=== PATIENT | male | born 1950 | race Caucasian/White ===

== ENCOUNTER 2025-05-09 11:41 | Emergency (ER) | payer MEDICARE, OTHER, SELFPAY ==
--- NOTE | 2025-05-09 11:46 | XRR_ITS ---
PROCEDURE INFORMATION: Exam: XR Right Hand Exam date and time: 05/09/2025 11:47 AM Age: 74 years old Clinical indication: Injury or trauma; Fall; Blunt trauma (contusions or hematomas); Hand; Right TECHNIQUE: Imaging protocol: Radiologic exam of the right hand. Views: 3 or more views. Total images: 306 COMPARISON: No relevant prior studies available. FINDINGS: Bones/joints: Right middle (3rd) finger distal interphalangeal joint dislocation characterized by posterior displacement of the distal (P3) phalanx with respect to middle (P2) phalanx. Right 3rd distal (P3 phalanx) dorsal articular margin osteophyte demonstrates a subtle transverse hairline and may be fractured without displacement. First (1st) carpometacarpal (CMC) and triscaphe (scaphotrapeziumtrapezoid) joint degenerative osteoarthritis. Mild degenerative arthritis between the lunate and triquetrum carpals. Generalized minor right metacarpophalangeal joint osteoarthritis. A solitary small 2.3 mm diameter well corticated calcification-ossification lies just volar of the distal radial metaphysis, unlikely to represent an acute fracture. Right distal interphalangeal joint and proximal interphalangeal joint mild degenerative arthritis. Soft tissues: Normal. No manifestations of laceration, subcutaneous emphysema or unexpected retained soft tissue radiopaque foreign body. XR/XR hand RT min 3V* [id number] IMPRESSION: 1. Right middle (3rd) finger distal interphalangeal joint dislocation characterized by posterior displacement of the distal (P3) phalanx with respect to middle (P2) phalanx. 2. Right 3rd distal (P3 ) phalanx dorsal articular margin osteophyte with subtle transverse hairline; nondisplaced osteophyte fracture without displacement cannot be excluded. 3. Generalized degenerative osteoarthritis.
[2025-05-09 11:50] VITALS: BP 205/80; PULSE 81; RESP 17; TEMP 36.6; O2SAT 97; BMI 29.0
--- OUTSIDE RECORDS SUMMARY | 2025-05-09 11:50 | XMS_ITS | Clinical Summary ---
Author Organization [facility] er Address [address] [facility] [place] [address] Care Team Providers [employer] Speech Therapist Name Role Phone Nicolas Basurto MD Primary Care Provider [phone] Allergies Active Allergy Reactions Criticality Noted Date Comments [place] And Derivatives Anaphylaxis High 09/02/2019 Latex Rash Low 08/16/2023 Penicillins Hives High 05/06/2019 Prochlorperazine Edisylate Other (See Comments) High 05/06/2019 Draws him up, contracture like symptoms Ragweed Cough Low 02/09/2017 Unclassified Drug Hives High 08/16/2023 Dog fur Medications EPINEPHrine (EPIPEN) 0.3 mg/0.3 mL Auto-Injector INJECT 1 PEN IN THE MUSCLE SINGLE DOSE NEEDED DIRECTED 0 Active doxepin (SINEquan) 10 mg capsule Take 30 mg by mouth daily at bedtime. 0 Active vit C/E/Zn/coppr/lutei n/zeaxan (PRESERVISION AREDS-2 ORAL) Take 1 Tablet by mouth 2 times daily. 1 Active glucosamine-chondr oitin (ARTHX DS) 500-400 mg Capsule Take 1 Capsule by mouth 2 times daily. Active fexofenadine (SHIV) 180 mg tablet Take 180 mg by mouth daily. Active calcium as carbonate 1,625 mg (650 mg elemental) tablet Take 1 Tablet by mouth 2 times daily. Active ascorbic acid, vitamin C, (VITAMIN C) 1,000 mg Tablet Take 1,000 mg by mouth daily. Active dupilumab (Dupixent Pen) 300 mg/2 mL Pen Injector every 2 weeks. 1 Active Cinnamon Bark (Cinnamon) 500 mg Capsule Take by mouth daily. Active docusate sodium (Colace) 100 mg capsule Take 1 Capsule (100 mg) by mouth 2 times daily. 60 Capsule 09/07/2023 11:33 AM CDT 4 Active atorvastatin (LIPITOR) 40 mg tabletIndications: Hyperlipidemia, unspecified hyperlipidemia type TAKE 1 TABLET DAILY AT BEDTIME 90 Tablet 3 5 Active lisinopriL (PRINIVIL) 10 mg tabletIndications: Essential hypertension TAKE 1 TABLET DAILY 90 Tablet 3 5 Active montelukast (SINGULAIR) 10 mg tablet TAKE 1 TABLET DAILY 90 Tablet 3 5 Active metFORMIN (GLUCOPHAGE) 500 mg tabletIndications: Type 2 diabetes mellitus with hyperglycemia, without long-term current use of insulin (CMS/[facility]) TAKE 1 TABLET TWICE A DAY WITH MEALS 180 Tablet 3 5 Active glucos sul [id number]-C-M n (Glucosamine Chondroitin) 550-30-1 mg Capsule Take 1 Capsule by mouth every 12 hours. 4 Active omeprazole (PriLOSEC) 40 mg Capsule, Delayed Release(E.C.) TAKE 1 CAPSULE DAILY 90 Capsule 3 5 Active fluticasone propionate (FLONASE) 50 mcg/spray [place], Suspension nasal inhalerIndications :Seasonal allergic rhinitis due to pollen Administer 2 Sprays in each nostril daily. 16 Gram 5 Active OTHER OTC Flonase Active Lumigan 0.01 % solution INSTILL 1 DROP INTO EACH EYE ONCE DAILY IN THE EVENING 5 Active gabapentin (NEURONTIN) 600 mg tablet TAKE 1 TABLET THREE TIMES A DAY 270 Tablet 3 5 Active tamsulosin (FLOMAX) 0.4 mg capsule TAKE 1 CAPSULE DAILY 90 Capsule 3 5 Active empagliflozin (Jardiance) 10 mg tabletIndications: Type 2 diabetes mellitus without complication, without long-term current use of insulin (CMS/HCC),HFrEF (heart failure with reduced ejection fraction) ([facility]/HCC) Take 1 Tablet (10 mg) by mouth daily in the morning. 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 09/05/2023 Allergic rhinitis 08/16/2023 Anemia 08/16/2023 S/P insertion of spinal cord stimulator 08/16/19 Chronic bilateral low back pain without sciatica 04/19/2023 Hyperlipidemia DM (diabetes mellitus), type 2 Essential hypertension History of colonic polyps Resolved Problems Problem Noted Date Diagnosed Date Resolved Date Preoperative general physical examination 08/16/2023 08/23/2023 Status post left knee replacement - 09/06/2023 12/25/2023 Constipation 08/16/2023 08/23/2023 Nephrolithiasis 12/20/2022 04/19/2023 Elevated liver enzymes 09/02/201904/19 Leukocytosis (leucocytosis) 09/01/2019 09/20/2019 Spasticity 09/01/2019 08/23/2023 Acute deep vein thrombosis ( DVT) of left peroneal vein 09/01/2019 03/08/2022 Incomplete paraplegia 08/30/20192021 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 08/28/2019 07/12/2022 Urinary retention 08/26/2019 09/20/2019 Acute cystitis without hematuria 08/26/2019 09/01/2019 Constipation, unspecified 08/26/2019 Sepsis 08/26/2019 09/20/2019 Generalized weakness 08/26/2019 024 Asthma 08/23/2023 Overview (04/27/2021): Reactive airway disease-no treatment in 10 years Encounters Date Type Department Care Team Description 04/21/2025 External Device Data ST[facility] ABSTRACTION Provider, Abstract 04/14/2025 11:16 AM HOT TOP LINER - 04/14/2025 11:59 PM HOT TOP LINER Hospital Encounter [facility] [address] [place] [id number] Nicolas Basurto MD Discharge Disposition: Home or Self Care 04/08/2025 8:30 AM HOT TOP LINER Office Visit [facility] [place] [facility] [address] [address] [address] [place] [phone] Nicolas Basurto MD Mixed hyperlipidemia (Primary Dx); Type 2 diabetes mellitus without complication, without long-term current use of insulin (CMS/HCC) 04/07/2025 Results Follow-Up [place] [address] [address] [address] [address] [place] [phone] Nicolas Basurto MD CBC WITH DIFFERENTIAL, COMPREHENSIVE METABOLIC PANEL, HEMOGLOBIN A1C, Additional followed-up results: 2 03/20/2025 Orders Only [place] [address] [address] [address] [address] [place] [phone] Nicolas Basurto MD Injury of right foot, sequela (Primary Dx); Right foot pain 03/17/2025 9:00 AM CDT Office Visit [facility] [address] [place] [address] Vidal Pate PA-C Lumbar spondylosis (Primary Dx); Lumbar radiculitis; Degeneration of intervertebral disc of lumbar region with discogenic back pain; Failed back surgical syndrome; Post laminectomy syndrome 03/10/2025 External Device Data STL ABSTRACTION Provider, Abstract 03/04/2025 12:30 PM CDT Office Visit [place] [address] [address] [address] [address] [place] [phone] Nicolas Basurto MD Type 2 diabetes mellitus without complication, without long-term current use of insulin (CMS/HCC) (Primary Dx); Right foot pain; HFrEF (heart failure with reduced ejection fraction) (CMS/HCC); Need for vaccination; Hyperlipidemia, unspecified hyperlipidemia type; Essential hypertension; Essential (primary) hypertension 03/04/2025 Results Follow-Up [facility] [address] [address] [address] [place] [phone] Nicolas Basurto MD ECHO COMPLETE - CONTRAST AND STRAIN IF INDICATED 03/03/2025 12:41 PM CDT - 03/03/2025 11:59 PM CDT [facility] [address] [facility] [place] [address] Nicolas Basurto MD Discharge Disposition: Home or Self Care 02/26/2025 Results Follow-Up [facility] [address] [place] [address] Emily Mckeon DNP C-REACTIVE PROTEIN 02/25/2025 11:00 AM CDT Office Visit [facility] [address] [place] [address] Emily Mckeon DNP 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 (Primary Dx) 02/19/2025 9:37 AM CDT - 02/19/2025 11:59 PM CDT Hospital Encounter [facility] [address] [address] [address] [facility] [address] [place] [phone] Nicolas Basurto MD Discharge Disposition: Home or Self Care 02/19/2025 Results Follow-Up [facility] [address] [address] [address] [place] [phone] FOOT WO CONTRAST RIGHT 02/17/2025 External Device Data STL ABSTRACTION Provider, Abstract 02/13/2025 7:30 AM CDT Office Visit [place] [address] [address] [address] [address] [place] [phone] Nicolas Basurto MD Right foot pain (Primary Dx); Injury of left rotator cuff, subsequent encounter; Metatarsalgia of right foot; Left elbow pain; Rupture of left biceps tendon, initial encounter 02/12/2025 Refill [facility] [address] [place] [phone] Leana Arias PA from Last 3 Months Immunizations Immunization Administration Dates Next Due (ADACEL/BOOSTRIX)(10 YR UP) TDAP VACCINE, 0.5ML, IM 04/10/2012 (Moderna Bivalent)(6 Mos Up) COVID-19 Vaccine - Emergency Use Authorization, MRNA(Pf) 50 Mcg/0.5 Ml Im Susp 05/11/2022 (PNEUMOVAX 23)(50 YRS UP) PN EUMOCOCCAL POLYSACCHARIDE (PPV23) 0.5 ML, IM 07/25/2019,10/11/2011 (PREVNAR 13)(6 WKS UP) PNEUM OCOCCAL CONJUGATE (PCV13) 0.5 ML, IM 02/14/2021,04/11/2018 (SPIKEVAX) (12 YRS UP PRIMAR Y SERIES) COVID-19 VACCINE - MRNA-1273(PF) 100 MCG/0.5 ML IM SUSP 07/05/2020 (TDVAX)(7 YRS UP) TETANUS AN D DIPHTHERIA TOXOIDS, ADSORBED (2 LF OF TETANUS TOXOID AND 2 LF OF DIPHTHERIA TOXOID), 0.5ML (PF), IM 02/25/2021 (TENIVAC)(7 YRS UP) TETANUS AND DIPHTHERIA TOXOIDS, ADSORBED (5 LF OF TETANUS TOXOID AND 2 LF OF DIPHTHERIA TOXOID), 0.5ML (PF), IM 02/25/2021 INFLUENZA VACCINE HIGH DOSE QUADRIVALENT 65 YR UP PF IM 02/20/2024,02/20/2024,03/12/2023,03/26,03/11/2021,02/20/2020,04/15/2019 INFLUENZA VACCINE HIGH DOSE TRIVALENT SPLIT VIRUS, (65 YR UP), 0.5ML (PF), IM 03/04/2025,02/20/2024 Influenza A (H1N1) Vaccine IM 03/23/2022 Influenza Seasonal Unspecifi ed Formulation IM 04/11/2018 Influenza Vaccine High Dose 65+ Yrs IM 9 Influenza Vaccine Tri Adjuva nted 65+ PF IM 04/15/2019 Influenza, Unspecified Formulation 04/11/2018 Family History Medical History Relation Name Comments High Cholesterol Brother Kandi 1 Heart Disease Father Rachael leaky valve Respiratory Disease Father Rachael Diabetes Maternal Grandfather High Cholesterol Mother Lianne Hypertension Mother Lianne Diabetes Paternal Grandfather Kandi Guerrero No Known Problems Sister Diabetes Son 1 No Known Problems Son 2 Relation Name Status Comments Brother Kandi Alive Father Rachael Maternal Grandfather Mother Lianne Paternal Grandfather Kandi Guerrero Alive Sister Son 1 Alive Son 2 Alive Social History Tobacco Use Types Packs/Day Years Used Date Smoking Tobacco: Never Passive Smoke Exposure: Never Smokeless Tobacco: Never Tobacco Cessation:Counseling Given: Not Answered Alcohol Use Standard Drinks/Week Comments Never 0 (1 standard drink = 0.6 oz pur e alcohol) Financial Resource Strain Answer Date R ecorded How hard is it for you to pa y for the very basics like food, housing, medical care, and heating? Not hard at all 03/08/2022 Food Insecurity Answer Date Recorded In the past 12 months, have you worried that your food would run out before you had money to buy more? Never true 03/08/2022 In the past 12 months, did y ou run out of food and didn't have money to buy more? Never true 03/08/2022 Transportation Needs Answer Date Record ed In the past 12 months, has l ack of transportation kept you from medical appointments or from getting medications? No 03/08/2022 Lack of Transportation (Non-Medical) Not on file 03/08/2022 Feeling Safe Answer Date Recorded Are you in a relationship wi th someone who hurts you emotionally and/or physically? No 02/03/2025 Food Insecurity Answer Date Recorded Social/Environmental Concerns No concerns Transportation Needs Answer Date Record ed Social/Environmental Concerns No concerns Housing Stability Answer Date Recorded Social/Environmental Concerns No concerns Utility Needs Answer Date Recorded Social/Environmental Concerns No concerns Sex and Gender Information Value Date Recorded Sex Assigned at Not on file Legal Sex Male 11:13 PM HOT TOP LINER Gender Identity Not on file Sexual Orientation Not on file Last Filed Vital Signs Vital Sign Reading Time Taken Comments Blood Pressure 120/74 04/08/2025 8:58 AM HOT TOP LINER Pulse 82 04/08/2025 8:58 AM HOT TOP LINER Temperature 36.4 C (97.6 F) 04/08/2025 8:58 AM HOT TOP LINER Respiratory Rate 18 04/08/2025 8:58 AM HOT TOP LINER Oxygen Saturation 98% 04/08/2025 8:58 AM HOT TOP LINER Inhaled Oxygen Concentration - - Weight 81.6 kg (179 lb 12.8 oz) 04/08/2025 8:58 AM HOT TOP LINER Height 165.1 cm (5' 5 ) 04/08/2025 8:58 AM HOT TOP LINER Body Mass Index 29.92 04/08/2025 8:58 AM HOT TOP LINER Plan of Treatment Upcoming Encounters Date Type Department Care Team (Late st Contact Info) Description 05/20/2025 7:20 AM HOT TOP LINER Office Visit [facility] [address] [place] [address] Vidal Pate PA-C [address] [place] [phone] 10/15/2025 7:30 AM CDT Office Visit [facility] [address] [address] [address] [place] [address] Nicolas Basurto MD [address] [place] [address] [address] [place] [address] Health Maintenance Due Date Last Done Comments FIT-DNA Q 3 years 1994 FIT/FOBT Q 1 year 1994 Flex Sig/CT Colonography Q 5 years 1994 ZOSTER VACCINE (1 of 2) 1999 RSV VACCINE (60+ or ) (1 - 1-dose 75+ series) 2024 Traditional Medicare (ACO) A nnual Wellness Visit 08/23/2024 08/23/2023, 03/08/2022, 02/25/2021 COVID-19 Vaccine (6 - 2024-2 6 season) 2025 05/11/2022, 10/18/2021, 05/09/2021, Additional history exists COLORECTAL SCREENING 04/15/2025 04/15/2020, 04/15/2020, 04/05/2020, Additional history exists Colorectal Cancer Screening 04/15/2025 DIABETES ANNUAL FOOT EXAM 05/07/20252023, 11/09/2022, 11/02/2021, Additional history exists DIABETES HBA1C Q 6 MONTHS 10/04/20252024, 11/24/2024, 05/07/2024, Additional history exists DIABETES MICROALBUMIN ANNUAL SCREEN 11/24/2025 11/24/2024, 08/23/2023, 07/12/2022, Additional history exists DIABETES ANNUAL RETINAL EXAM 12/01/2025, 03/05/2024, 08/06/2023, Additional history exists DIABETES: A1C (Auto Order) 04/06/202604/06, 11/24/2024, 05/07/2024, Additional history exists LDL CHOLESTEROL ANNUAL 04/06/2026 , 11/24/2024, 08/23/2023, Additional history exists DTAP/TDAP/TD VACCINES (4 - T d or Tdap) 02/25/2031 02/25/2021, 02/25/2021, 04/10/2012 PNEUMOCOCCAL VACCINE 50+ YEARS Completed 0 02/14/2021, 07/25/2019, 04/11/2018, Additional history exists INFLUENZA VACCINE Completed 03/04/2025, , 02/20/2024, Additional history exists Medical Devices Implanted Type Area Electrician Substation Device Identifier Shelf Expiration Date Model / Serial / Lot Clip Crtg Med/Lrg 1112 - [id number] Implanted:Qty : 1 on 01/31/2023 by Alex Frost MD at [facility] Clip N/A: Abdomen [employer] [id number] 11/30/2027 1112 / / [id number] Hemostatic Surgiflo 8ml W/Thrombin 2994 - [id number] Implanted:Qty : 1 on 08/27/2019 by Davon Rico MD Hemostatic N/A: Spine Thoracic [employer] [id number] 02/01/2021 2994 / / [id number] [place] Senza Lead N300 [id number] - [id number] Implanted:Qty : 1 on 10/22/2020 by Roque Nichole MD Lead Left: Back NEVRO ESTELA 03/04/2023 [id number] / / [id number] Lead Senza Perc Catalino 5mm 50cm Kt [id number] - [id number] Implanted:Qty : 1 on 10/22/2020 by Roque Nichole MD Lead Left: Back NEVRO ESTELA [id number] [id number] / / [id number] Lead Senza Perc Catalino 5mm 50cm Kt [id number] - [id number] Implanted:Qty : 1 on 10/22/2020 by Roque Nichole MD Lead Left: Back NEVRO ESTELA [id number] [id number] / / [id number] Senza Omnia Scs Generator Implanted:Qty : 1 on 10/22/2020 by Roque Nichole MD Left: Back 04/04/2023 NEVRO - [id number] / / [id number] Bsplt Tib Attune Fix Brng Sz 6 Implanted:Qty : 1 on 09/06/2023 by Jasper Quinonez MD at [facility] Left: Knee [id number] 08/01/2033 [id number] / / [id number] Comp Fem Attune Lt Sz6 Nrw Implanted:Qty : 1 on 09/06/2023 by Jasper Quinonez MD at [facility] Left: Knee [id number] 12/01/2032 [id number] / / [id number] Tibial Insert 6 Left 5mm Implanted:Qty : 1 on 09/06/2023 by Jasper Quinonez MD at [facility] Left: Knee 05/03/2031 [id number] / / [id number] Explanted Type Area Electrician Substation Device Identifier Shelf Expiration Date Model / Serial / Lot Stent Contour [id number] - [id number] Implanted:Qty: 1 on 12/20/2022 by Wilian Smiley MD at [facility] Explanted:Qty: 1 on 12/28/2022 by Gladys Parish MD at [facility] Stent Right: Ureter [employer]/PNEUMATIC TUBE FITTER [id number] 08/21/2025 [id number] Procedures Procedure Name Priority Date/Time Associated Diagnosis Comments MRI FOOT WO CONTRAST RIGHT Routine 04/14/2025 11:56 AM HOT TOP LINER Injury of right foot, sequela Right foot pain BRAIN NATRIURETIC PEPTIDE, BNP OR PROBNP Routine 04/06/2025 9:17 AM HOT TOP LINER HFrEF (heart failure with reduced ejection fraction) ([facility]/HCC) Essential (primary) hypertension LIPID PANEL Routine 04/06/2025 9:17 AM HOT TOP LINER HFrEF (heart failure with reduced ejection fraction) (CMS/HCC) Hyperlipidemia, unspecified hyperlipidemia type Essential hypertension HEMOGLOBIN A1C Routine 04/06/2025 9:17 AM HOT TOP LINER Type 2 diabetes mellitus without complication, without long-term current use of insulin ([facility]/HCC) COMPREHENSIVE METABOLIC PANEL Routine 04/06/2025 9:17 AM HOT TOP LINER Type 2 diabetes mellitus without complication, without long-term current use of insulin ([facility]/HCC) HFrEF (heart failure with reduced ejection fraction) (CMS/HCC) Hyperlipidemia, unspecified hyperlipidemia type Essential hypertension CBC WITH DIFFERENTIAL Routine 04/06/2025 9:17 AM HOT TOP LINER Type 2 diabetes mellitus without complication, without long-term current use of insulin ([facility]) Right foot pain HFrEF (heart failure with reduced ejection fraction) (CMS/HCC) Need for vaccination Hyperlipidemia, unspecified hyperlipidemia type Essential hypertension ECHO COMPLETE Routine 03/03/2025 2:07 PM CDT Systolic murmur C-REACTIVE PROTEIN Routine 02/25/2025 11 :20 AM CDT 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 CT FOOT WO CONTRAST RIGHT Routine 02/19/2025 10:12 AM CDT Right foot pain Metatarsalgia of right foot MICROALBUMIN/CREATINI NE RATIO, RANDOM UR Routine 11/24/2024 9:18 AM CDT Type 2 diabetes mellitus without complication, without long-term current use of insulin ([facility]) HM DIABETES EYE EXAM Routine 07/06/2023 4:11 PM HOT TOP LINER ENDOSCOPY, COLON, SCREENING 04/15/2020 12:00 AM HOT TOP LINER from Last 3 Months or Most Recently Relevant to Health Maintenance Results * MRI FOOT WO CONTRAST RIGHT (04/14/2025 11:56 AM HOT TOP LINER) Anatomical Region Laterality Modality Ankle / Foot Magnetic Resonan ce 04/14/2025 11:5 6 AM HOT TOP LINER Impressions 04/14/2025 12:26 PM HOT TOP LINER IMPRESSION: Please see below. Exam: MRI FOOT WO CONTRAST RIGHT Date/Time of Exam: 04/14/2025 11:56 AM Reason For Exam: Foot trauma, tendon injury or dislocation suspected, xray equivocal (Age >= 6y), Foot pain, stress fracture suspected, neg xray. Diagnosis: Injury of right foot, sequela; Right foot pain. Technique: MRI of the right foot was performed without the administration of intravenous contrast. Comparison: Radiographs from 02/06/[address] from 02/11/2025. Findings: There is metallic susceptibility artifact associated with total ankle arthroplasty hardware. There is metallic susceptibility artifact associated with several soft tissue foreign bodies not readily apparent on prior exams. There is no evidence of an acute fracture or abnormal stress response. The joints are anatomically aligned. There are mild scattered degenerative changes affecting the first metatarsophalangeal and mid foot joints. There is a physiologic amount of joint fluid. The Lisfranc ligamentous complex appears intact. The capsuloligamentous complex of the first metatarsophalangeal joint and the plantar plates of the lesser digits appear intact. The tendons appear intact and within normal limits. There is no significant tenosynovitis. There is a mild degree of nonspecific subcutaneous soft tissue edema. There is no evidence of a discrete fluid collection. There is no significant bursal distention. There is no evidence of a discrete soft tissue mass. There is a mild degree of nonspecific muscle edema. IMPRESSION: 1. No acute osseous abnormality. 2. Mild degenerative changes. Narrative Procedure Note Gato Goss, - 04/14/2025 IMPRESSION: Please see below. Exam: MRI FOOT WO CONTRAST RIGHT Date/Time of Exam: 04/14/2025 11:56 AM Reason For Exam: Foot trauma, tendon injury or dislocation suspected, xray equivocal (Age >= 6y), Foot pain, stress fracture suspected, neg xray. Diagnosis: Injury of right foot, sequela; Right foot pain. Technique: MRI of the right foot was performed without the administration of intravenous contrast. Comparison: Radiographs from 02/06/[address] from 02/11/2025. Findings: There is metallic susceptibility artifact associated with total ankle arthroplasty hardware. There is metallic susceptibility artifact associated with several soft tissue foreign bodies not readily apparent on prior exams. There is no evidence of an acute fracture or abnormal stress response. The joints are anatomically aligned. There are mild scattered degenerative changes affecting the first metatarsophalangeal and mid foot joints. There is a physiologic amount of joint fluid. The Lisfranc ligamentous complex appears intact. The capsuloligamentous complex of the first metatarsophalangeal joint and the plantar plates of the lesser digits appear intact. The tendons appear intact and within normal limits. There is no significant tenosynovitis. There is a mild degree of nonspecific subcutaneous soft tissue edema. There is no evidence of a discrete fluid collection. There is no significant bursal distention. There is no evidence of a discrete soft tissue mass. There is a mild degree of nonspecific muscle edema. IMPRESSION: 1. No acute osseous abnormality. 2. Mild degenerative changes. us Nicolas Basurto MD MR ORDERABLES Final Res ult * CBC WITH DIFFERENTIAL (04/06/2025 9:17 AM HOT TOP LINER) WBC 8.2 3.8 - 10.8 Thousand/u L [facility] RBC 4.68 4.20 - 5.80 Million/uL [facility] HEMOGLOBIN 15.2 13.2 - 17.1 g/dL [facility] HEMATOCRIT 45.7 38.5 - 50.0 % [facility] MCV 97.6 80.0 - 100.0 fL [facility] MCH 32.5 27.0 - 33.0 pg [facility] MCHC 33.3 32.0 - 36.0 g/dL [facility] Comment: For adults, a slight decrease in the calculated MCHC value (in the range of 30 to 32 g/dL) is most likely not clinically significant; however, it should be interpreted with caution in correlation with other red cell parameters and the patient's clinical condition. RDW 12.0 11.0 - 15.0 % [facility] PLATELETS 235 140 - 400 Thousand/u L [facility] MPV 10.7 7.5 - 12.5 fL [facility] NEUTROPHIL ABSOLUTE 5,125 1,500 - 7,800 cells/uL [facility] LYMPHOCYTE ABSOLUTE 1,952 850 - 3,900 cells/uL [facility] MONOCYTE ABSOLUTE 558 200 - 950 cells/uL [facility] EOSINOPHIL ABSOLUTE 426 15 - 500 cells/uL [facility] BASOPHILS ABSOLUTE 139 0 - 200 cells/uL [facility] NEUTROPHIL 62.5 % [facility] LYMPHOCYTES 23.8 % [facility] MONOCYTE 6.8 % [facility] EOSINOPHILS 5.2 % [facility] BASOPHILS 1.7 % [facility] Comment: FASTING:NO FASTING: NO Test Performed at: [place] [id number] Delfina Morse MD Blood 04/06/2025 9:17 AM HOT TOP LINER 04/06/2025 9:18 AM HOT TOP LINER Nicolas Basurto MD HEMATOLOGY ORDERABLES Fin al Result [facility] [phone] [facility] [id number] [place] [address] * BRAIN NATRIURETIC PEPTIDE, BNP OR PROBNP (04/06/2025 9:17 AM HOT TOP LINER) PROBNP, N TERMINAL 87 <450 pg/mL [facility] Comment: FASTING:NO FASTING: NO Test Performed at: [facility] [id number] [place] [address] Delfina Morse MD Blood 04/06/2025 9:17 AM HOT TOP LINER 04/06/2025 9:18 AM HOT TOP LINER Nicolas Basurto MD CHEMISTRY ORDERABLES Mary l Result Performing Organization Address [facility]/ZIP Co de Phone Number [facility] [phone] [facility] [address] [place] [address] * (ABNORMAL) HEMOGLOBIN A1C (04/06/2025 9:17 AM HOT TOP LINER) HEMOGLOBIN A1C 6.4(H) <5.7 % [facility] Comment: For someone without known diabetes, a hemoglobin A1c value between 5.7% and 6.4% is consistent with prediabetes and should be confirmed with a follow-up test. For someone with known diabetes, a value <7% indicates that their diabetes is well controlled. A1c targets should be individualized based on duration of diabetes, age, comorbid conditions, and other considerations. This assay result is consistent with an increased risk of diabetes. Currently, no consensus exists regarding use of hemoglobin A1c for diagnosis of diabetes for children. ESTIMATED AVERAGE GLUCOSE (MG/DL) 137 mg/dL [facility] ESTIMATED AVERAGE GLUCOSE (MMOL/L) 7.6 mmol/L [facility] Comment: FASTING:NO FASTING: NO Test Performed at: [facility] [address] [place] [address] Delfina Morse MD Blood 04/06/2025 9:17 AM HOT TOP LINER 04/06/2025 9:18 AM HOT TOP LINER Nicolas Basurto MD CHEMISTRY ORDERABLES Mary l Result Performing Organization Address City/[facility]/ZIP Co de Phone Number [facility] [phone] [facility] [address] [place] [address] * (ABNORMAL) LIPID PANEL (04/06/2025 9:17 AM HOT TOP LINER) CHOLESTEROL 142 <200 mg/dL [facility] HDL 37(L) > OR = 40 mg/dL [facility] TRIGLYCERIDE 152(H) <150 mg/dL [facility] LDL CALCULATED 80 mg/dL (calc) [facility] Comment: Reference range: <100 Desirable range <100 mg/dL for primary prevention; <70 mg/dL for patients with CHD or diabetic patients with > or = 2 CHD risk factors. LDL-C is now calculated using the Ge calculation, which is a validated novel method providing better accuracy than the Friedewald equation in the estimation of LDL-C. Ritchie SS et al. MUNIRA. 2013;310(19): 3008-6935 (http://education.[employer]/faq/XJG893) CHOL/HDL RATIO 3.8 <5.0 (calc) [facility] NON-HDL CHOLESTEROL 105 <130 mg/dL (calc) [facility] Comment: For patients with diabetes plus 1 major ASCVD risk factor, treating to a non-HDL-C goal of <100 mg/dL (LDL-C of <70 mg/dL) is considered a therapeutic option. Test Performed at: [facility] [address] [place] [address] Delfina Morse MD Blood 04/06/2025 9:17 AM HOT TOP LINER 04/06/2025 9:18 AM HOT TOP LINER Nicolas Basurto MD CHEMISTRY ORDERABLES Mary l Result [facility] [phone] [facility] [address] [place] [address] * (ABNORMAL) COMPREHENSIVE METABOLIC PANEL (04/06/2025 9:17 AM HOT TOP LINER) GLUCOSE 92 65 - 139 mg/dL [facility] Comment: Non-fasting reference interval BUN 26(H) 7 - 25 mg/dL [facility] CREATININE 1.07 0.70 - 1.28 mg/dL [facility] GFR 72 > OR = 60 mL/min/1.7 3m2 [facility] BUN/CREAT RATIO 24(H) 6 - 22 (calc) [facility] SODIUM 141 135 - 146 mmol/L [facility] POTASSIUM 4.9 3.5 - 5.3 mmol/L [facility] CHLORIDE 107 98 - 110 mmol/L [facility] CO2 25 20 - 32 mmol/L [facility] CALCIUM 9.2 8.6 - 10.3 mg/dL [facility] TOTAL PROTEIN 6.9 6.1 - 8.1 g/dL [facility] ALBUMIN 4.6 3.6 - 5.1 g/dL [facility] GLOBULIN 2.3 1.9 - 3.7 g/dL (calc) [facility] ALBUMIN/GLOBULIN RATIO 2.0 1.0 - 2.5 (calc) [facility] BILIRUBIN TOTAL 0.8 0.2 - 1.2 mg/dL [facility] ALKALINE PHOSPHATASE 80 35 - 144 U/L [facility] AST 27 10 - 35 U/L [facility] ALT 29 9 - 46 U/L [facility] Comment: FASTING:NO FASTING: NO Test Performed at: [facility] [address] Delfina Morse MD Blood 04/06/2025 9:17 AM HOT TOP LINER 04/06/2025 9:18 AM HOT TOP LINER Nicolas Basurto MD CHEMISTRY ORDERABLES Mary l Result [facility] [phone] [facility] [address] [place] [address] * ECHO COMPLETE - CONTRAST AND STRAIN IF INDICATED (03/03/2025 2:07 PM CDT) Narrative [facility] CARDIOLOGY/FLUID MANAGEMENT - 03/03/2025 5:07 PM CDT [facility] Agitated Saline Exam: no Contrast Used: no Indication: Systolic murmur FINDINGS: Technically adequate study. Left ventricular systolic function estimated to be 40%. This appears global. Left ventricle measures normal at 4.5 cm in end diastole. Mild LVH with interventricular septum measuring 1.4 cm. Posterior wall 1.3 cm RV measures 2.6 cm Right and left atrium measure normal IVC 1.4 cm No evidence of pericardial effusion. Aortic root measures normal at 3 cm Valvular data: Aortic valve is calcified/trileaflet. Peak velocity 2.4 m/s, peak gradient 23 mmHg with a mean gradient of 12 mmHg indicative of mild aortic valve stenosis. No aortic valve insufficiency. Mitral valve with mitral calcification. Trace mitral insufficiency. No mitral stenosis Tricuspid valve structurally normal. Trace tricuspid regurgitation with RVSP 25 mmHg Pulmonic valve structurally normal. No significant insufficiency. No obvious intracardiac masses or thrombi are identified. Dr Nabil Conti MD, FACC, [facility] Cardiology & Interventional Cardiology [address] [facility] [place], [address] [place] [address] us Nicolas Basurto MD US ORDERABLES Final Res ult [facility] CARDIOLOGY/FLUID MANAGEMENT CLIA# [id number] [address] [facility] [place] [address] * C-REACTIVE PROTEIN (02/25/2025 11:20 AM CDT) CRP <3.0 <8.0 mg/L [facility] Comment: FASTING:NO FASTING: NO Test Performed at: [facility] [address] [place] [address] Delfina Morse MD Blood 02/25/2025 11:2 0 AM CDT 02/25/2025 11:20 AM CDT Emily [facility] CHEMISTRY ORDERABLES Final Result [facility] [phone] [facility] [address] [place] [address] * CT FOOT WO CONTRAST RIGHT (02/19/2025 10:12 AM CDT) Anatomical Region Laterality Modality Ankle / Foot Computed Tomogra phy 02/19/2025 10:3 7 AM CDT Impressions 02/19/2025 10:32 AM CDT IMPRESSION: Please see below. Exam: CT FOOT WO CONTRAST RIGHT Date/Time of Exam: 02/19/2025 10:12 AM Reason For Exam: Foot pain, chronic, metatarsalgia. Diagnosis: Right foot pain; Metatarsalgia of right foot. Technique: CT of the right foot was performed without the administration of intravenous contrast. Comparison: Radiographs from 02/06/2025. Findings: There are postsurgical changes of tibiotalar joint arthroplasty with grossly intact-appearing hardware resulting in beam hardening artifact which limits detail. There are chronic-appearing periprosthetic cystic changes associated with the posterior tibia and the anterior talus. There are postsurgical changes of subtalar arthrodesis and subsequent hardware removal. There is a suture anchor within the medial aspect of the navicular suggestive of prior posterior tibialis tendon repair. There is no evidence of an acute osseous abnormality. The joints are anatomically aligned. 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 There are moderate talonavicular joint degenerative changes. There are milder degenerative changes involving the naviculocuneiform, tarsometatarsal and the first metatarsophalangeal joints. There is a mild degree of nonspecific subcutaneous soft tissue edema without a discrete fluid collection. IMPRESSION: 1. No acute osseous abnormality. 2. Degenerative changes greatest affecting the talonavicular joint. Narrative Procedure Note Gato Goss, DO - 02/19/2025 IMPRESSION: Please see below. Exam: CT FOOT WO CONTRAST RIGHT Date/Time of Exam: 02/19/2025 10:12 AM Reason For Exam: Foot pain, chronic, metatarsalgia. Diagnosis: Right foot pain; Metatarsalgia of right foot. Technique: CT of the right foot was performed without the administration of intravenous contrast. Comparison: Radiographs from 02/06/2025. Findings: There are postsurgical changes of tibiotalar joint arthroplasty with grossly intact-appearing hardware resulting in beam hardening artifact which limits detail. There are chronic-appearing periprosthetic cystic changes associated with the posterior tibia and the anterior talus. There are postsurgical changes of subtalar arthrodesis and subsequent hardware removal. There is a suture anchor within the medial aspect of the navicular suggestive of prior posterior tibialis tendon repair. There is no evidence of an acute osseous abnormality. The joints are anatomically aligned. 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 There are moderate talonavicular joint degenerative changes. There are milder degenerative changes involving the naviculocuneiform, tarsometatarsal and the first metatarsophalangeal joints. There is a mild degree of nonspecific subcutaneous soft tissue edema without a discrete fluid collection. IMPRESSION: 1. No acute osseous abnormality. 2. Degenerative changes greatest affecting the talonavicular joint. Nicolas Basurto MD CT ORDERABLES Final Res ult * MICROALBUMIN/CREATININE RATIO, RANDOM UR (11/24/2024 9:18 AM CDT) CREATININE, URINE 58 20 - 320 mg/dL [facility] ALBUMIN, URINE 0.7 See Note: mg/dL [facility] Comment: Reference Range: Reference Range Not established ALB/CREAT RATIO, URINE 12 <30 mg/g creat [facility] Comment: The ADA defines abnormalities in albumin excretion as follows: Albuminuria Category Result (mg/g creatinine) Normal to Mildly increased <30 Moderately increased 30-299 Severely increased > OR = 300 The ADA recommends that at least two of three specimens collected within a 3-6 month period be abnormal before considering a patient to be within a diagnostic category. FASTING:YES FASTING: YES Test Performed at: [facility] [address] [place] [address] Delfina Morse MD Urine URINE SPECIMEN OBTAINED BY CLEAN CATCH PROCEDURE / Unknown 11/24/2024 9:18 AM CDT 11/24/2024 9:18 AM CDT us Cassandra Leone HEAD GREASE MAKER URINE ORDERABLES Final R esult [facility] [phone] [facility] [address] [place] [address] * DIABETES EYE EXAM (07/06/2023 4:11 PM HOT TOP LINER) us Abstract Provider HEALTH MAINTENANCE Final Resul t [facility]# [id number] [address] [place] [address] * ENDOSCOPY, COLON, SCREENING (04/15/2020 12:00 AM HOT TOP LINER) Galo Machado MD GI PROCEDURE ORDERABLES Final Re sult from Last 3 Months or Most Recently Relevant to Health Maintenance Insurance MEDICARE PART A AND B [employer] MEDICARE PART A AND B FOR LIFE Advance Directives For more information, please contact: [phone] * Full Code (Latest Code Status on File) Date Activated Date Inactivated Comments 09/06/2023 4:26 PM 09/07/2023 2:06 PM * Full Code Date Activated Date Inactivated Comments 01/31/2023 8:44 AM 01/31/2023 8:15 PM Care Teams School Speech Therapist Relationship Specialty Start Date End Date Nicolas Basurto MD [address] [place] [address] [address], [place] [phone] PCP - General Family Practice 03/04/25
--- OUTSIDE RECORDS SUMMARY | 2025-05-09 11:50 | XMS_ITS | Encounter Summary ---
Author Organization [facility] Address [address] [place] [address] Care Team Providers Care Message Broker Developer Name Role Phone Nicolas Basurto MD Primary Care Provider [phone] Encounter Details Date Type Department Care Team (Late st Contact Info) Description 12/21/2022 Lab Requisition [facility] Laboratory Services [address] [address] Wilian Smiley MD NO ADDRESS ON FILE Calculus of kidney Social History Tobacco Use Types Packs/Day Years Used Date Smoking Tobacco: Never Smokeless Tobacco: Never Alcohol Use Standard Drinks/Week Comments Never 0 [...] of Transportation (Non-Medical) Not on file 03/08/2022 Sex and Gender Information Value Date Recorded Sex Assigned at Not on file Legal Sex Male 11:13 PM IT RISK AND ASSURANCE MANAGER Gender Identity Not on file Sexual Orientation Not on file COVID-19 Exposure Response Date Recorded In the last 10 days, have yo u been in contact with someone who was confirmed or suspected to have Coronavirus/COVID-19? No / Unsure 12/16/2022 12:40 PM CDT documented as of this encounter Plan of Treatment Upcoming Encounters Date Type Department Care Team (Late st Contact Info) Description 05/20/2025 7:20 AM IT RISK AND ASSURANCE MANAGER Office Visit [facility] Pain Management [address] [place] [address] Vidal Pate PA-C [address] [place] [address] 10/15/2025 7:30 AM CDT Office Visit [facility] Family Medicine [address] [address] [address] [place] [address] Nicolas Basurto MD [address] [place] [address] [address] [place] [address] documented as of this encounter Procedures Procedure Name Priority Date/Time Associated Diagnosis Comments URINALYSIS WITH REFLEX CULTURE Stat 12/21/2022 10:17 AM CDT Calculus of kidney URINALYSIS MICROSCOPY ONLY Stat 12/21/2022 10:17 AM CDT Calculus of kidney URINE CULTURE Routine 12/21/2022 10:17 AM CDT Calculus of kidney documented in this encounter Results * URINE CULTURE (12/21/2022 10:17 AM CDT) CULTURE No growth 12/22/2022 4:32 PM CDT [facility] Urine URINE SPECIMEN OBTAINED BY CLEAN CATCH PROCEDURE / Unknown Collection / Unknown 12/21/2022 10:17 AM CDT 12/21/2022 10:56 AM CDT us Wilian Smiley MD MICROBIOLOGY - GENERAL ORDER BRITTANY Final Result Performing Organization Address City/[facility]/ZIP Co de Phone Number [facility] CLIA # [id number] [facility] [place] [address] * (ABNORMAL) URINALYSIS MICROSCOPY ONLY (12/21/2022 10:17 AM CDT) WBC UA 3-5(A) 0 - 2 /hpf 12/21/2022 10:57 AM CDT [facility] RBC UA 51-100(A) 0 - 2 /hpf 12/21/2022 10:57 AM CDT [facility] BACTERIA UA Negative Negative /hpf 12/21/2022 10:57 AM CDT [facility] Urine URINE SPECIMEN OBTAINED BY CLEAN CATCH PROCEDURE / Unknown Collection / Unknown 12/21/2022 10:17 AM CDT 12/21/2022 10:17 AM CDT us Wilian Smiley MD URINE ORDERABLES Final Resul t Performing Organization Address City/[facility]/ZIP Co de Phone Number [facility] CLIA # [id number] [address] [place] [address] * (ABNORMAL) URINALYSIS WITH REFLEX CULTURE (12/21/2022 10:17 AM CDT) COLOR UA Cassandra(A) Pale to Dark Yellow 12/21/2022 10:57 AM CDT [facility] CLARITY UA Cloudy(A) Clear 12/21/2022 10:57 AM CDT [facility] SPECIFIC GRAVITY UA 1.010 1.003 - 1.035 12/21/2022 10:57 AM CDT [facility] PH UA 7.0 5.0 - 8.0 12/21/2022 10:57 AM CDT [facility] LEUKOCYTE ESTERASE UA 1+(A) Negative 12/21/2022 10:57 AM CDT [facility] NITRITE UA Negative Negative 12/21/2022 10:57 AM CDT [facility] PROTEIN UA 1+(A) Negative 12/21/2022 10:57 AM CDT [facility] GLUCOSE UA Negative Negative 12/21/2022 10:57 AM CDT [facility] KETONES UA Negative Negative 12/21/2022 10:57 AM CDT [facility] UROBILINOGEN UA 0.2 <2.0 mg/dL 10:57 AM CDT [facility] BILIRUBIN UA Negative Negative 12/21/2022 10:57 AM CDT [facility] BLOOD UA 3+(A) Negative 12/21/2022 10:57 AM CDT [facility] Urine URINE SPECIMEN OBTAINED BY CLEAN CATCH PROCEDURE / Unknown Collection / Unknown 12/21/2022 10:17 AM CDT 12/21/2022 10:17 AM CDT Narrative [facility] - 12/21/2022 10:57 AM CDT Based on results, a urine culture has been reflexed. us Wilian Smiley MD URINE ORDERABLES Final Resul t [facility] CLIA # [id number] [address] [place] [address] documented in this encounter Visit Diagnoses Diagnosis Calculus of kidney documented in this encounter Additional Health Concerns Infection Onset Date Last Indicated Resolved Time R/O COVID-19 02/11/2024 02/11/2024 02/11/2024 7:31 PM CDT COVID-19 02/11/2024 02/11/2024 03/02/2024 1:16 AM CDT documented as of this encounter Care Teams Message Broker Developer Relationship Specialty Start Date End Date Nicolas Basurto MD [address] [place] [address] [address] [place] [phone] PCP - General Family Practice 03/04/25 documented as of this encounter
--- OUTSIDE RECORDS SUMMARY | 2025-05-09 11:50 | XMS_ITS | Clinical Summary ---
Author Organization [facility] er Address [address] [place] [address] Care Team Providers Care Director Of Family Service Center Name Role Phone Galo Machado MD Primary Care Provider [phone] Allergies Active Allergy Reactions Criticality Noted Date Comments [place] And Derivatives Anaphylaxis High 09/02/2019 Penicillins Hives High 05/06/2019 Prochlorperazine Edisylate Other (See Comments) High 05/06/2019 Draws him up Medications fexofenadine (SHIV) 180 mg tablet Take 180 mg by mouth daily. Active calcium as carbonate 1,625 mg (650 mg elemental) tablet Take 1 Tablet by mouth 2 times daily. Active cholecalciferol, vitamin D3, 1,000 unit Take 1,000 Units by mouth daily. Active ascorbic acid, vitamin C, (VITAMIN C) 1,000 mg Tablet Take 1,000 mg by mouth daily. Active glucosamine-chondr oitin (ARTHX DS) 500-400 mg Capsule Take 1 Capsule by mouth 2 times daily. Active budesonide-formote rol (SYMBICORT) 160-4.5 mcg/actuation HFA Aerosol Inhaler Take 2 Puffs by inhalation 2 times daily. Active albuterol HFA 90 mcg inhaler Take 2 Puffs by inhalation every 6 hours as needed for Shortness of Breath. Active polyethylene glycol (MIRALAX) 17 gram Powder in Packet Take 1 Packet (17 Grams) by mouth daily. 0 Active naproxen (NAPROSYN) 250 mg tablet Take 250 mg by mouth 2 times daily with meals. Take 2 tablets prn Active EPINEPHrine (EPIPEN) 0.3 mg/0.3 mL Auto-Injector INJECT 1 PEN IN THE MUSCLE SINGLE DOSE NEEDED DIRECTED 0 Active clobetasoL (TEMOVATE) 0.05 % Cream 0 Active triamcinolone acetonide (KENALOG) 0.1 % Cream 0 Active doxepin (SINEquan) 10 mg capsule Take 30 mg by mouth daily at bedtime. 0 Active sildenafiL, pulm.hypertension, (REVATIO) 20 mg TabletIndications: Erectile dysfunction due to diseases classified elsewhere Si -5 tablets 30 mins prior to intercourse. (Max 100mg in 24 hours.) 60 Tablet 3 1 Active tamsulosin (FLOMAX) 0.4 mg capsule 0 Active mupirocin (BACTROBAN) 2 % Ointment 0 Active vit C/E/Zn/coppr/lutei n/zeaxan (PRESERVISION AREDS-2 ORAL) Take 1 Tablet by mouth 2 times daily. Active HYDROcodone-acetam inophen (NORCO) 10-325 mg TabletIndications: Lumbar radiculitis Take 1 Tablet by mouth every 8 hours as needed for Pain. Max Daily Amount: 3 Tablets 45 Tablet 1 Active montelukast (SINGULAIR) 10 mg tablet Take 1 Tablet (10 mg) by mouth daily. 90 Tablet 2 1 Active lisinopriL (PRINIVIL) 10 mg tabletIndications: Essential hypertension Take 1 Tablet (10 mg) by mouth daily. 90 Tablet 2 1 Active metFORMIN (GLUCOPHAGE) 500 mg tabletIndications: Type 2 diabetes mellitus with hyperglycemia, without long-term current use of insulin (CMS/[facility]) Take 1 Tablet (500 mg) by mouth 2 times daily with meals. 180 Tablet 2 1 Active omeprazole (PriLOSEC) 40 mg Capsule, Delayed Release(E.C.) TAKE 1 CAPSULE BY MOUTH DAILY. 90 Capsule 2 1 Active atorvastatin (LIPITOR) 40 mg tabletIndications: Hyperlipidemia, unspecified hyperlipidemia type Take 1 Tablet (40 mg) by mouth daily at bedtime. 90 Tablet 2 1 Active pioglitazone (ACTOS) 15 mg tabletIndications: Type 2 diabetes mellitus with hyperglycemia, without long-term current use of insulin (CMS/HCC) Take 1 Tablet (15 mg) by mouth daily with breakfast. 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 08/03 Generalized weakness 08/26/2019 Hyperlipidemia HTN (hypertension) DM (diabetes mellitus), type 2 History of colonic polyps Resolved Problems Problem Noted Date Diagnosed Date Resolved Date Leukocytosis (leucocytosis) 09/01/2019 09/20/2019 Urinary retention 08/26/2019 09/20/2019 Acute cystitis without hematuria 08/26/2019 09/01/2019 Constipation, unspecified 08/26/2019 Sepsis 08/26/2019 09/20/2019 Immunizations Immunization Administration Dates Next Due (ADACEL/BOOSTRIX)(10 YR UP) TDAP VACCINE, 0.5ML, IM 04/10/2012 (PNEUMOVAX 23)(50 YRS UP) PN EUMOCOCCAL POLYSACCHARIDE (PPV23) 0.5 ML, IM 07/25/2019,10/11/2011 (SPIKEVAX) (12 YRS UP PRIMAR Y SERIES) COVID-19 VACCINE - MRNA-1273(PF) 100 MCG/0.5 ML IM SUSP 07/05/2020 INFLUENZA VACCINE HIGH DOSE QUADRIVALENT 65 YR UP PF IM 02/20/2020 Influenza Seasonal Unspecified Formulation IM Influenza Vaccine High Dose 65+ Yrs IM 9 Family History Medical History Relation Name Comments High Cholesterol Brother Hypertension Brother Heart Disease Father Respiratory Disease Father High Cholesterol Mother Hypertension Mother Unknown Sister Relation Name Status Comments Brother Alive Father Mother Sister Alive Social History Tobacco Use Types Packs/Day Years Used Date Smoking Tobacco: Never Smokeless Tobacco: Never Tobacco Cessation:Counseling Given: No Alcohol Use Standard Drinks/Week Comments Never 0 (1 standard drink = 0.6 oz pur e alcohol) Sex and Gender Information Value Date Recorded Sex Assigned at Not on file Legal Sex Male 2:43 PM 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 Gender Identity Not on file Sexual Orientation Not on file Last Filed Vital Signs Vital Sign Reading Time Taken Comments Blood Pressure 142/76 11/15/2020 8:08 AM CDT Pulse 67 11/15/2020 8:08 AM CDT Temperature 36.1 C (96.9 F) 11/15/2020 8:08 AM CDT Respiratory Rate 18 10/22/2020 12:20 PM CDT Oxygen Saturation 99% 11/15/2020 8:08 AM CDT Inhaled Oxygen Concentration - - Weight 85.8 kg (189 lb 3.2 oz) 11/15/2020 8:08 A M CDT Height 165.1 cm (5' 5 ) 11/15/2020 8:08 AM CDT Body Mass Index 31.48 11/15/2020 8:08 AM CDT Plan of Treatment Health Maintenance Due Date Last Done Comments DIABETES ANNUAL FOOT EXAM 1967 FIT-DNA Q 3 years 1994 FIT/FOBT Q 1 year 1994 Flex Sig/CT Colonography Q 5 years 1994 ZOSTER VACCINE (1 of 2) 1999 PNEUMOCOCCAL VACCINE 50+ YEA RS (2 of 2 - PCV) 07/25/2020 07/25/2019, 10/11/2011 DIABETES MICROALBUMIN ANNUAL SCREEN 02/19/2021 02/20/2020 Traditional Medicare (ACO) A nnual Wellness Visit 02/20/2021 02/20/2020 DIABETES HBA1C Q 6 MONTHS 05/17/20212020, 07/09/2020, 02/20/2020, Additional history exists LDL CHOLESTEROL ANNUAL 11/15/2021 1, 07/09/2020, 02/20/2020, Additional history exists DTAP/TDAP/TD VACCINES (2 - T d or Tdap) 04/10/2022 04/10/2012 RSV VACCINE (60+ or ) (1 - 1-dose 75+ series) 2024 DIABETES ANNUAL RETINAL EXAM 07/06/202407/2023, 11/03/2022, 08/04/2021, Additional history exists INFLUENZA VACCINE (#1) 2025 0, 04/29/2019, 04/11/2018 COVID-19 Vaccine (2 - 2024-2 6 season) 2025 07/05/2020 COLORECTAL SCREENING 04/05/2025 04/05/2020, 04/05/2020, 06/30/2014 Colorectal Cancer Screening 04/05/2025 Medical Devices Implanted Type Area Technologist Infectious Disease Device Identifier Shelf Expiration Date Model / Serial / Lot Hemostatic Surgiflo 8ml W/Thrombin 2994 - [id number] Implanted:Qty: 1 on 08/27/2019 by Davon Rico MD at [facility] Hemostatic N/A: Spine Thoracic [employer] [id number] 02/01/2021 2994 / / [id number] Lead Senza Perc Catalino 5mm 50cm Kt [id number] - [id number] Implanted:Qty: 1 on 10/22/2020 by Roque Nichole MD at [facility] Lead Left: Back NEVRO ESTELA 03/04/2323 [id number] / / [id number] Lead Senza Perc Catalino 5mm 50cm Kt [id number] - [id number] Implanted:Qty: 1 on 10/22/2020 by Roque Nichole MD at [facility] Lead Left: Back NEVRO ESTELA 03/04/2323 [id number] / / [id number] Lulu Senza Lead N300 [id number] - [id number] Implanted:Qty: 1 on 10/22/2020 by Roque Nichole MD at [facility] Lead Left: Back NEVRO ESTELA 03/04/2023 [id number] / / [id number] Senza Omnia Scs Generator Implanted:Qty: 1 on 10/22/2020 by Roque Nichole MD at [facility] Left: Back 04/04/2023 NEVRO - [id number] / / [id number] Procedures Procedure Name Priority Date/Time Associated Diagnosis Comments LIPID PANEL Routine 11/15/2020 8:34 AM CDT Hyperlipidemia, unspecified hyperlipidemia type HEMOGLOBIN A1C Routine 11/15/2020 8:34 AM CDT Type 2 diabetes mellitus with hyperglycemia, without long-term current use of insulin ([facility]) ENDOSCOPY, COLON, SCREENING Routine 04/05/2020 1:00 PM 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 Screening for colon cancer MICROALBUMIN/CREATI NINE RATIO, RANDOM UR Routine 02/20/2020 8:49 AM CDT Type 2 diabetes mellitus with hyperglycemia, without long-term current use of insulin (CMS/HCC) DIABETES EYE EXAM Routine 12/09/2019 from Last 3 Months or Most Recently Relevant to Health Maintenance Results * (ABNORMAL) HEMOGLOBIN A1C (11/15/2020 8:34 AM CDT) HEMOGLOBIN A1C 6.1(H) <5.7 % of total Hgb [employer] [place] Comment: For someone without known diabetes, a [...] A1c for diagnosis of diabetes for children. Test Performed at: [facility] [address] [place] [address] Xavier Harley D.O., MPH Blood 11/15/2020 8:34 AM CDT 11/16/2020 7:20 AM CDT us Galo Machado MD CHEMISTRY ORDERABLES Final Resul t [employer] [place] [address] [address] * (ABNORMAL) LIPID PANEL (11/15/2020 8:34 AM CDT) CHOLESTEROL 157 <200 mg/dL [employer] [facility] [place] HDL 39(L) > OR = 40 mg/dL [employer] [place] TRIGLYCERIDE 191(H) <150 mg/dL [facility] LDL CALCULATED 89 mg/dL (calc) [employer] [place] Comment: Reference range: <100 Desirable range <100 mg/dL for primary prevention; <70 mg/dL for patients with CHD or diabetic patients with > or = 2 CHD risk factors. LDL-C is now calculated using the Ge calculation, which is a validated novel method providing better accuracy than the Friedewald equation in the estimation of LDL-C. Ritchie SS et al. MUNIRA. 2013;310(19): 5312-7051 (http://education.Plurchase/faq/ETA156) CHOL/HDL RATIO 4.0 <5.0 (calc) [facility] TOTAL NON-HDL CHOL(LDL+VLDL) 118 <130 mg/dL (calc) [facility] [employer] [place] Comment: For patients with diabetes plus 1 major ASCVD risk factor, treating to a non-HDL-C goal of <100 mg/dL (LDL-C of <70 mg/dL) is considered a therapeutic option. Test Performed at: [facility] [address] [place] [address] Xavier Harley D.O., MPH Blood 11/15/2020 8:34 AM CDT 11/16/2020 7:20 AM CDT Galo Machado MD CHEMISTRY ORDERABLES Final Resul t Performing Organization Address City/[facility]/ZIP Co de Phone Number [facility] [address] [place] [address] * ENDOSCOPY, COLON, SCREENING (04/05/2020 1:00 PM 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) 04/05/2020 1:00 PM 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 us Galo Machado MD GI PROCEDURE ORDERABLES Final Re sult [facility] CLIA# [id number] [address] [place] [place] [address] * MICROALBUMIN/CREATININE RATIO, RANDOM UR (02/20/2020 8:49 AM CDT) MICROALBUMIN, URINE <1.2 No Reference Range mg/dL 02/20/2020 4:32 PM CDT [facility] CREATININE, URINE 118.0 40.0 - 278.0 mg/dL 02/20/2020 4:32 PM CDT [facility] Comment:Reference Range vari es with fluid intake and diet. MICROALBUMIN/C REAT RATIO, UR <10.2 <17.0 mg/g 02/20/2020 4:32 PM CDT [facility] Urine URINE SPECIMEN OBTAINED BY CLEAN CATCH PROCEDURE / Unknown Collection / Unknown 02/20/2020 8:49 AM CDT 02/20/2020 1:24 PM CDT Narrative [facility] - 02/20/2020 4:32 PM CDT Condition Microalbumin/Creat ratio Normal Males <17 Normal Females <25 Microalbuminuria Males 17-299 Microalbuminuria Females 25-299 Overt proteinuria >=300 Galo Machado MD URINE ORDERABLES Final Result [facility] CLIA# [id number] [address] [place] [address] * DIABETES EYE EXAM (12/09/2019) Abstract Spg Provider HEALTH MAINTENANCE Final R esult from Last 3 Months or Most Recently Relevant to Health Maintenance Insurance MEDICARE PART A AND B [employer] FOR LIFE MEDICARE PART A AND B [employer] FOR LIFE MEDICARE PART A AND B FOR LIFE Advance Directives For more information, please contact: [phone] * Full Code (Latest Code Status on File) Date Activated Date Inactivated Comments 10/22/2020 6:47 AM 10/22/2020 2:48 PM * Full Code Date Activated Date Inactivated Comments 08/30/2019 2:53 PM 09/20/2019 2:36 PM * Full Code Date Activated Date Inactivated Comments 08/26/2019 5:01 PM 08/30/2019 2:31 PM Care Teams Director Of Family Service Center Relationship Specialty Start Date End Date Galo Machado MD PCP - General Family Practice 06/05/19
--- OUTSIDE RECORDS SUMMARY | 2025-05-09 11:50 | XMS_ITS | Encounter Summary ---
Author Organization [facility] Address [address] [place] [address] Care Team Providers Care Lead Recoverer Name Role Phone Nicolas Basurto MD Primary Care Provider [phone] Encounter Details Date Type Department Care Team (Late st Contact Info) Description 03/04/2025 Results Follow-Up [facility] Family Medicine [address] [address] [address] [place] [address] Nicolas Basurto MD [address] [place] [address] [address] [place] [address] ECHO COMPLETE - CONTRAST AND STRAIN IF INDICATED Social History Tobacco Use Types Packs/Day Years Used Date Smoking Tobacco: Never Passive Smoke Exposure: Never Smokeless Tobacco: Never Alcohol Use Standard [...] on file Legal Sex Male 11:13 PM EDGER AUTOMATIC Gender Identity Not on file Sexual Orientation Not on file documented as of this encounter Plan of Treatment Upcoming Encounters Date Type Department Care Team (Late st Contact Info) Description 05/20/2025 7:20 AM EDGER AUTOMATIC Office Visit [facility] Pain [facility] [address] [place] [address] Vidal Pate PA-C [address] [place] [address] 10/15/2025 7:30 AM CDT Office Visit [facility] Family Medicine [address] [address] [address] [place] [id number] Nicolas Basurto MD [address] [place] [address] [address] [place] [address] documented as of this encounter Visit Diagnoses Not on filedocumented in this encounter Care Teams Lead Recoverer Relationship Specialty Start Date End Date Nicolas Basurto MD [address] [place] [address] [address] [place] [address] PCP - General Family Practice 03/04/25 documented as of this encounter
--- NOTE | 2025-05-09 12:02 | XRR_ITS ---
PROCEDURE INFORMATION: Exam: XR Right Hand Exam date and time: 05/09/2025 12:19 PM Age: 74 years old Clinical indication: Injury or trauma; Fall; Blunt trauma (contusions or hematomas); Hand; Right; Additional info: Post reduction TECHNIQUE: Imaging protocol: Radiologic exam of the right hand. Views: 1 or 2 views. Total images: 3 COMPARISON: CR (UP EXM, ) 05/09/2025 11:47 AM FINDINGS: Bones/joints: Interval closed reduction of right 3rd DIP dislocation, without evidence of fracture. Soft tissues: Soft tissues are normal as visualized, demonstrating no masses or swelling/induration. No manifestations of laceration, subcutaneous emphysema or unexpected retained soft tissue radiopaque foreign body. Other findings: Stable generalized chronic degenerative manifestations unchanged as compared with the acute right hand radiographic series performed 30 minutes ago. XR/XR hand RT 2V [id number] IMPRESSION: Interval closed reduction of right 3rd DIP dislocation, without evidence of fracture.
--- NOTE | 2025-05-09 12:03 | W.ED.EXTPRO ---
HPI - Extremity Problem General: Chief complaint: Extremity Injury, Upper Stated complaint: Fall R hand [facility] Time Seen by Provider: 05/09/25 11:46 Source: patient Mode of arrival: ambulatory Limitations: no limitations History of Present Illness: 74-year-old male states that he had fell before arrival and landed on his right hand has obvious dislocation to right ring finger. He says pain in that finger he rates 3 out of 10 denies any other injuries denies hitting his head Related Data Allergies Allergy/AdvReac Type Severity Reaction Status Date / Time Penicillins Allergy ALGY-Anaphy Verified 05/09/25 11:58 laxis prochlorperazine (From Allergy ALGY-Difficulty Verified 05/09/25 11:58 Compazine) Breathing Review of Systems Musc: Reports: extremity pain Physical Exam Const: COMMON NORMALS: no acute distress, patient oriented x3 and healthy appearing HENMT: COMMON NORMALS: normocephalic and atraumatic HEAD & SCALP: normocephalic and atraumatic Neck/C-Spine: COMMON NORMALS: full ROM and supple Chest: COMMONS NORMALS: normal inspection of the chest Resp: COMMON NORMALS: normal respiratory effort Cardio: COMMON NORMALS: regular rate RATE: regular rate Extremity: COMMON NORMALS: full ROM NARRATIVE EXTREMITY EXAM: Dislocation noted to DIP of right ring finger Neuro: COMMON NORMALS: patient oriented x3, moves all extremities and no focal motor deficits Psych: COMMON NORMALS: mental status grossly normal, Normal thought process present and cooperative THOUGHT PROCESS: Normal thought process present Skin: COMMON NORMALS: no rashes or lesions noted and no wounds GENERAL SKIN EXAM: no rashes or lesions noted Procedures Orthopedic Joint Reduction Joint #1: Time Out Performed: Yes Side: right Joint Reduction Location: finger Technique used: traction/counter-traction Post-reduction neuro exam: intact Post-reduction vascular: intact Post Reduction X-Ray Obtained: Yes Post Reduction X-Ray Results: reduced Splint Applied: No Patient Tolerated Procedure: well Course Vital Signs: Vital signs: Vital Signs Temperature 98 F 05/09/25 11:50 Pulse Rate 81 05/09/25 11:50 Respiratory Rate 17 05/09/25 11:50 Blood Pressure 205/80 05/09/25 11:50 Pulse Oximetry 97 05/09/25 11:50 MDM - Extremity (Nontraumatic) Medical Decision Making Patient presents here after a fall does have a DIP dislocation of his right ring finger did reduce it here no signs of fracture did placement a finger splint he is to follow-up with PCP and return if worsening he understands agrees to plan. Medical Records I reviewed the patient's medical records. Lab Data Radiology Impressions Hand X-Ray 05/09/25 12:02 IMPRESSION: Interval closed reduction of right 3rd DIP dislocation, without evidence of fracture. All radiology interpretation(s) finalized by discharge Discharge Plan Discharge Patient Disposition: Home Clinical Impression: Dislocated finger Qualifiers: Encounter type: initial encounter Qualified Code(s): S63.259A - Unspecified dislocation of unspecified finger, initial encounter Condition: Stable Discharge Orders: Discharge ED (Routine); Ordered 05/09/25 Ordered By: Ivy Pierson Discharge Diet: Advance as tolerated Discharge Activity: Resume usual activity Patient Instructions: Finger Dislocation (ED) Print Language: Vietnamese Coding Level of Care Code ED Registered Vascular Technologist (Rvt) for Sharon Salomon
== END 2025-05-09 12:54 | disposition home or self-care (01) ==
PROVIDERS: Emergency Provider Emergency Medicine
DX: S63.294A Dislocation of distal interphalangeal joint of right ring finger, initial encounter (principal); W19.XXXA Unspecified fall, initial encounter
CPT/HCPCS: 29130; 73120; 73130; 99283